=== PATIENT | female | born 1995 | race Caucasian/White ===

== ENCOUNTER 2016-10-11 19:10 | Emergency (ER) | payer OTHER ==
[2016-10-11 21:26] VITALS: BP 120/70
== END 2016-10-11 21:26 | disposition home or self-care (01) ==
LOC: ED 19:10
DX: S60.112A Contusion of left thumb with damage to nail, initial encounter (principal); W22.8XXA Striking against or struck by other objects, initial encounter; Y93.89 Activity, other specified; Y92.89 Other specified places as the place of occurrence of the external cause; Y99.8 Other external cause status
CPT/HCPCS: A4570; J1885